=== PATIENT | male | born 1995 | race Caucasian/White ===

== ENCOUNTER → 2024-05-30 15:17 | Outpatient (CLI) | payer OTHER, SELFPAY | PROVIDERS: Visit Provider Physician Assistant Surgical | DX: R31.9 Hematuria, unspecified (principal) | CPT/HCPCS: 87086 ==

== ENCOUNTER → 2024-07-01 12:18 | Outpatient (CLI) | payer OTHER, SELFPAY ==
--- NOTE | 2024-07-01 12:19 | DI.RAD.S_ITS ---
PROCEDURE: XR CHEST 2V INDICATIONS: chest pressure x 4 days, no URI TECHNIQUE: 2 views of the chest were acquired. COMPARISON: None. FINDINGS: Heart, mediastinum and pulmonary vascular: Heart is normal in size and configuration. Mediastinum is unremarkable. Pulmonary vascular is normal. Lungs: Clear Pleural spaces: Normal-no effusions or pneumothorax. Bones and soft tissues: Normal IMPRESSION: Normal chest. Dictated by: Inder Jackson M.D. on 07/02/2024 at 10:41 Approved by: Inder Jackson M.D. on 07/02/2024 at 10:44
[2024-07-01 13:04] LABS: Add Manual Diff / Slide Review NO; Basophils Absolute Auto 0 /uL (0-100); Eosinophils Absolute Auto 200 /uL (0-450); Eosinophils Percent Auto 4.5 % (2-4); Hematocrit 41.7 % (41-53); Hemoglobin 13.8 g/dL (13.5-17.5); Lymphocytes Absolute Auto 1200 /uL (1100-4500); Mean Corpuscular HGB Conc 33.2 % (30-36); Mean Corpuscular Hemoglobin 29.1 PG (26-34); Mean Corpuscular Volume 87.8 fL (80-100); Monocytes Absolute Auto 300 /uL (0-900); Monocytes Percent Auto 9.1 % (3-14); Neutrophils Absolute Auto 1800 /uL (1500-7000); Neutrophils Percent Auto 51.4 % (50-75); Platelet Count 202 X10^3/uL (150-400); Red Blood Cell Count 4.75 X10^6/uL (4.5-5.9); Red Cell Distribution Width 13.8 % (11.6-14.8); White Blood Cell Count 3.6 X10^3/uL (4.5-11.0)
[2024-07-01 13:13] LABS: D Dimer 232 ng/ml (<500)
[2024-07-01 13:21] LABS: Alanine Aminotransferase 18 IU/L (<50); Albumin Globulin Ratio 1.5 (1.0-2.8); Alkaline Phosphatase 47 U/L (38-126); Aspartate Aminotransferase 23 IU/L (17-59); Bilirubin Total 0.9 mg/dL (0.2-1.3); Blood Urea Nitrogen 20 mg/dL (9-20); Calcium 9.8 mg/dL (8.4-10.2); Carbon Dioxide 29 mmol/L (22-32); Chloride 102 mmol/L (98-107); Creatine Kinase 107 U/L (55-170); Estimated Glomerular Filt Rate > 60 mL/min (>60); Globulin 3.4 g/dL (1.7-4.1); Glucose 101 mg/dL (70-100); HEMOLYSIS < 15 (0-50); Potassium 4.6 mmol/L (3.4-5.1); Sodium 139 mmol/L (137-145); Total Protein 8.4 g/dL (6.3-8.2)
[2024-07-01 13:37] LABS: Troponin I < 0.012 ng/mL (0.01-0.034)
[2024-07-01 13:49] LABS: TSH w/ Reflex to FT4 3.38 uIU/mL (0.47-4.68)
== END ==
LOC: LAB 12:19
PROVIDERS: Referring Provider Physician Assistant; Visit Provider Physician Assistant
DX: R07.89 Other chest pain (principal)
CPT/HCPCS: 71046; 80053; 82550; 84443; 84484; 85025; 85379; 86140